=== PATIENT | male | born 1965 | race Caucasian/White ===

== ENCOUNTER → 2024-07-04 | Emergency (ER) | payer BC ==
[~2024-07-04] VITALS: Ht 170.2 cm; Wt 79.4 kg
[~2024-07-04] MED LIST: CYCL5TAB PO; IBUP-1955 PO; LIDO30AD10 TP
[2024-07-04 08:10] LABS: BASOPHILS # (AUTO) 0.1 K/uL (0.0-0.2); BASOPHILS % (AUTO) 1.2 % (0.0-2.0); EOSINOPHILS # (AUTO) 0.5 K/uL (0.0-0.7); EOSINOPHILS % (AUTO) 6.3 % (0.0-6.0); HEMATOCRIT 42 % (39-51); HEMOGLOBIN 14.4 g/dL (13.5-17.5); LYMPHOCYTES # (AUTO) 2.1 K/uL (0.8-4.8); LYMPHOCYTES % (AUTO) 27.6 % (20.0-44.0); MEAN CORPUSCULAR HEMOGLOBIN 31 PG (26.0-33.0); MEAN CORPUSCULAR HGB CONC 34 g/dl (31.0-36.0); MEAN CORPUSCULAR VOLUME 91 fL (80-96); MONOCYTES # (AUTO) 0.8 K/uL (0.1-1.30); MONOCYTES % (AUTO) 10.4 % (2.0-12.0); NEUTROPHILS # (AUTO) 4.1 K/uL (1.8-8.9); NEUTROPHILS % (AUTO) 54.5 % (43.0-81.0); PLATELET COUNT (AUTO) 149 K/uL (150-450); RED BLOOD CELL COUNT(AUTO) 4.65 MIL/uL (4.5-6.0); RED CELL DISTRIBUTION WIDTH 13.5 % (11.5-15.0); WHITE BLOOD COUNT (AUTO) 7.6 K/uL (4.3-11.0)
[2024-07-04 08:20] LABS: CALCIUM, SERUM 8.2 mg/dL (8.5-10.1); CARBON DIOXIDE 25 mmol/L (21-32); CHLORIDE 110 mmol/L (98-107); CREATININE 1.1 mg/dL (0.6-1.3); GLUCOSE 101 mg/dL (74-106); POTASSIUM 4.3 mmol/L (3.5-5.1); SODIUM SERUM 144 mmol/L (136-145); UREA NITROGEN, BLOOD 20 mg/dL (7-18)
[2024-07-04 08:21] LABS: PARTIAL THROMBOPLASTIN TIME 28.7 SEC (24.3-34.3); PROTHROMBIN TIME 10.6 SECS (9.2-11.1)
[2024-07-04 09:26] LABS: AMPHETAMINE, URINE NEGATIVE (NEGATIVE); BARBITURATE, URINE NEGATIVE (NEGATIVE); BENZODIAZEPINE, URINE POSITIVE (NEGATIVE); CANNABINOID, URINE NEGATIVE (NEGATIVE); COCCAINE, URINE NEGATIVE (NEGATIVE); OPIATE, URINE NEGATIVE (NEGATIVE); PHENCYCLIDINE SCREEN,URINE NEGATIVE (NEGATIVE)
[2024-07-04 09:28] LABS: APPEARANCE,URINE CLEAR (CLEAR); BILIRUBIN,URINE NEGATIVE (NEGATIVE); BLOOD, URINE NEGATIVE Ery/uL (NEGATIVE); COLOR,URINE YELLOW (YELLOW); KETONES,URINE NEGATIVE (NEGATIVE); LEUKOCYTE ESTERASE ,URINE NEGATIVE (NEGATIVE); NITRITE, URINE NEGATIVE (NEGATIVE); PROTEIN,URINE NEGATIVE (NEGATIVE); UGLUCOSE NEGATIVE (NEGATIVE); UROBILINOGEN,URINE 0.2 EU/dL (0.2)
[2024-07-04] MEDS: ACETAMINOPHEN ES 500 MG TABLET PO ONE (09:40)
[2024-07-04] MEDS: diphenhydrAMINE HCL 50 MG/ML VIAL IV ONE (09:40)
[2024-07-04] MEDS: IV NS 0.9% 1,000 ML BAG IV ONE (09:40)
[2024-07-04] MEDS: METOCLOPRAMIDE HCL 10 MG/2 ML VIAL IV ONE (09:40)
[2024-07-04] MEDS: KETOROLAC TROMETHAMINE 15 MG/ML VIAL IV ONE (09:50)
[2024-07-04 10:25] VITALS: BP 122/78; TEMP 98.1; O2SAT 99
== END | disposition home or self-care (01) ==
LOC: ER 07:43
DX: R51.9 Headache, unspecified (principal); M54.2 Cervicalgia; E78.5 Hyperlipidemia, unspecified; Z86.73 Personal history of transient ischemic attack (TIA), and cerebral infarction without residual deficits
CPT/HCPCS: 99285; 70498; 96374; 96375; 71045; 96361; 93005; 70496; 85025; 80048; 36415; 84484; 85730; 82962; 80307; 81003; 70450; J1200; J2765; J7030; J7050; Q9967; J1885

== ENCOUNTER 2025-06-29 12:30 | Emergency (ER) | payer SELFPAY ==
[~2025-06-29] VITALS: Ht 162.6 cm; Wt 81.6 kg
[2025-06-29] MEDS ORDERED: KETOROLAC TROMETHAMINE 15 MG/ML VIAL ONE (13:22)
[2025-06-29] MEDS ORDERED: CLINDAMYCIN HCL 150 MG CAPSULE ONE (13:22)
[2025-06-29] MEDS ORDERED: CIPROFLOXACIN HCL 500 MG TABLET ONE (13:23)
[2025-06-29] MEDS ORDERED: CIPR500T5 PO (13:25)
[2025-06-29] MEDS ORDERED: CLIN300C12 PO (13:25)
[2025-06-29] MEDS ORDERED: KETO10TA2 PO (13:25)
[2025-06-29] MEDS: KETOROLAC TROMETHAMINE 15 MG/ML VIAL IM ONE (13:28)
[2025-06-29] MEDS: CIPROFLOXACIN HCL 250 MG TABLET PO ONE (13:28)
[2025-06-29] MEDS: CLINDAMYCIN HCL 150 MG CAPSULE PO ONE (13:28)
[2025-06-29] MEDS ORDERED: SULFAMETH/TRIMETH 800/160 MG 1 UDTAB TABLET PO ONE (13:30)
[2025-06-29] MEDS ORDERED: CEPHALEXIN MONOHYDRATE 500 MG CAPSULE PO ONE (13:30)
[2025-06-29 13:39] VITALS: BP 144/85; TEMP 98.6; O2SAT 98
== END 2025-06-29 13:39 | disposition home or self-care (01) ==
LOC: ER 12:44
DX: L03.115 Cellulitis of right lower limb (principal); Z86.73 Personal history of transient ischemic attack (TIA), and cerebral infarction without residual deficits; Z79.899 Other long term (current) drug therapy
CPT/HCPCS: 99283; 96372; J1885